=== PATIENT | female | born 1945 | race Caucasian/White ===

== ENCOUNTER 2018-05-26 05:37 | Day surgery (SDC) | payer OTHER, BC ==
[~2018-05-26] VITALS: Ht 144.8 cm; Wt 54.4 kg
[~2018-05-26 05:37] MED LIST: AMBIEN10 MG PO; BELLADONNA-PH16.2 MG PO; CIPRO250 MG PO; COZAAR25 MG PO; COZAAR50 MG PO; CYANOCOBALAM1000 MCG PO; ERGOCALCIF50000 UNIT PO; FLOVENT 11120 INHALA IH; FOLIC ACID0.8 MG PO; LIDEX 0.05% CRE60 GM TP; LIPITOR10 MG PO; MILK OF MAGN PO; MUPIROCIN15 GM TP; MYCELEX10 MG PO; NASACORT10.8 ML BOTH NARES; OMEPRAZOLE40 M1 PO; PREMARIN VAGI42.5 GM TP; SINGULAIR10 MG PO; SYNTHROID50 MCG PO; TYLENOL EXTRA500 MG PO; VENTOLIN HFA18 GM IH; VITAMIN B-6100 MG PO; ZANTAC300 MG PO; ZETIA10 MG PO
[2018-05-26 06:03] VITALS: BP 178/80
[2018-05-26 08:50] VITALS: BP 158/69
[2018-05-26 09:50] VITALS: BP 140/64
== END 2018-05-26 10:04 | disposition home or self-care (01) ==
LOC: SDC 05:37
DX: N85.6 Intrauterine synechiae (principal); N95.2 Postmenopausal atrophic vaginitis; J45.909 Unspecified asthma, uncomplicated; K21.9 Gastro-esophageal reflux disease without esophagitis; G47.00 Insomnia, unspecified; E78.5 Hyperlipidemia, unspecified; E03.9 Hypothyroidism, unspecified; Z91.040 Latex allergy status; Z88.0 Allergy status to penicillin; Z88.1 Allergy status to other antibiotic agents; Z88.2 Allergy status to sulfonamides
CPT/HCPCS: 88305; J0131; J0330; J1100; J1170; J1580; J1885; J2250; J2405; J3010; J7050; S0030